=== PATIENT | male | born 1990 | race Two or more races ===

== ENCOUNTER 2019-12-02 23:19 | Emergency (ER) | payer SELFPAY ==
[2019-12-02] MEDS ORDERED: Ketorolac 30 MG/ML SDV IVPUSH ONE (23:46)
[2019-12-02] MEDS ORDERED: Sodium Chloride 0.9% 1,000 ML IV ONE (23:46)
[2019-12-02] MEDS ORDERED: Sodium Chloride 0.9% 10 ML Syringe FLUSH PRN (23:46)
[2019-12-02] MEDS ORDERED: Hyoscyamine 0.125 MG Tab.SL SL ONE (23:46)
[2019-12-02] MEDS ORDERED: Ondansetron 4 MG/2 ML SDV IVPUSH ONE (23:46)
[2019-12-02] MEDS ORDERED: Sodium Chloride 0.9% 2.5 ML Syringe FLUSH PRN (23:46)
--- NOTE | 2019-12-02 23:50 | EDM.PDOC ---
ED HPI GENERAL MEDICAL PROBLEM - General Chief Complaint: Abdominal Pain Stated Complaint: ABDOMINAL PAIN Time Seen by Provider: 12/02/19 23:31 - History of Present Illness INITIAL COMMENTS - FREE TEXT/NARRATIVE: HISTORY AND PHYSICAL: History of present illness: Patient is a 29-year-old male with no GI or abdominal surgical history who presents with complaints of nausea and diarrhea that started over the weekend and has persisted until today. He says that he ate chicken at a friend's house and felt a little upset stomach before going to sleep and the next day woke up and did not feel well. He says that he normally only has 1 bowel movement per week and it usually hard although he has not taken any stool softeners or over- the-counter preps to improve his fiber and his diet he says is variable and he does eat junk foods. When he had a loose stool at the onset of the symptoms he was surprised as it was watery and that is never happened before. Since that time he has had several watery stools that are not black or bloody and he has diffuse vague abdominal pain which does not localize right or left. He says that sometimes he will have spasms of pain in the left lower quadrant. He has nausea without vomiting no fevers or flank pain no urinary complaints and no upper respiratory symptoms. He has not tried anything [id number] for this. Review of systems: As per history of present illness and below otherwise all systems reviewed and negative. Past medical history: As per history of present illness and as reviewed below otherwise noncontributory. Surgical history: As per history of present illness and as reviewed below otherwise noncontributory. Social history: No reported history of drug or alcohol abuse. Family history: As per history of present illness and as reviewed below otherwise noncontributory. Physical exam: Well-developed well-nourished man who is nontoxic and moves easily in the ED. Vital signs are noted by me HEENT: Atraumatic, normocephalic, pupils reactive, negative for conjunctival pallor or scleral icterus, mucous membranes moist, throat clear, neck supple, nontender, trachea midline. Lungs: Clear to auscultation, breath sounds equal bilaterally, chest nontender. Heart: S1S2, regular, negative for clicks, rubs, or JVD. Abdomen: Soft, nondistended,. Bowel sounds are hypoactive and there is some minimal tenderness in the left lower quadrant without rebound or guarding and there is no tympany on percussion. Negative for masses or hepatosplenomegaly. Negative for costovertebral tenderness. Pelvis: Stable nontender. Genitourinary: Deferred. Rectal: Deferred. Extremities: Atraumatic, negative for cords or calf pain. Neurovascular unremarkable. Neuro: Awake, alert, oriented. Cranial nerves II through XII unremarkable. Cerebellum unremarkable. Motor and sensory unremarkable throughout. Exam nonfocal. Diagnostics: CBC CMP lactic acid abdominal x-rays UA with reflex--- patient refused all of this Therapeutics: IV fluids Zofran Toradol hyoscamine My evaluation the patient has told nursing that he does not want any lab evaluation x-rays or IV medications. We will give him a dose of Zofran and Levsin and a prescription for some for home and have advised follow-up in the clinic. Impression: Nausea and diarrhea with abdominal pain Definitive disposition and diagnosis as appropriate pending reevaluation and review of above. - Related Data Allergies Allergy/AdvReac Type Severity Reaction Status Date / Time shrimp Allergy Hives Verified 12/02/19 23:32 Home Meds: Home Meds oxyCODONE 5 mg PO ASDIRECTED PRN 12/02/19 [History] Past Medical History Cardiovascular History: Reports: Heart Murmur Musculoskeletal History: Reports: Other (See Below) Other Musculoskeletal History: fx R foot - Past Surgical History Cardiovascular Surgical History: Reports: None Musculoskeletal Surgical History: Reports: None Social & Family History - Family History Family Medical History: Noncontributory - Tobacco Use Smoking Status *Q: Current Every Day Smoker Years of Tobacco use: 3 Packs/Tins Daily: 0.3 - Caffeine Use Caffeine Use: Reports: Energy Drinks - Recreational Drug Use Recreational Drug Use: No ED ROS GENERAL - Review of Systems Review Of Systems: Comprehensive ROS is negative, except as noted in HPI. ED EXAM, GENERAL - Physical Exam Exam: See Below (See dictation) Course - Vital Signs Last Recorded V/S: Last Vital Signs Temp 36.4 C 12/02/19 23:25 Pulse 84 12/02/19 23:25 Resp 17 12/02/19 23:25 BP 142/92 H 12/02/19 23:25 Pulse Ox 97 12/02/19 23:25 - Orders/Labs/Meds Orders: Active Orders 24 hr Category Date Time Status Abdomen 2V AP Flat Upright [CR] Stat Exams 12/02/19 23:46 Ordered CBC WITH AUTO DIFF [HEME] Stat Lab 12/02/19 23:45 Ordered COMPREHENSIVE METABOLIC PN,CMP [CHEM] Stat Lab 12/02/19 23:45 Ordered LACTATE WITH REFLEX [BG] Stat Lab 12/02/19 23:45 Ordered UA RFX SUKHJINDER AND CULT IF INDIC [URIN] Stat Lab 12/02/19 23:37 Received Sodium Chloride 0.9% [Normal Saline] 1,000 ml Med 12/02/19 23:46 Active IV STAT Sodium Chloride 0.9% [Saline Flush] Med 12/02/19 23:46 Active 10 ml FLUSH ASDIRECTED PRN Sodium Chloride 0.9% [Saline Flush] Med 12/02/19 23:46 Active 2.5 ml FLUSH ASDIRECTED PRN Saline Lock Insert [OM.PC] Stat Oth 12/02/19 23:45 Ordered Medication Orders Sodium Chloride (Normal Saline) 1,000 mls @ 999 mls/hr IV STAT ONE Stop: 12/03/19 00:46 Sodium Chloride (Saline Flush) 10 ml FLUSH ASDIRECTED PRN PRN Reason: Keep Vein Open Sodium Chloride (Saline Flush) 2.5 ml FLUSH ASDIRECTED PRN PRN Reason: Keep Vein Open Meds: Medications Generic Name Dose Route Start Last Admin Trade Name Freq PRN Reason Stop Dose Admin Sodium Chloride 1,000 mls @ 999 mls/hr 12/02/19 23:46 Normal Saline IV 12/03/19 00:46 STAT ONE Sodium Chloride 10 ml 12/02/19 23:46 Saline Flush FLUSH ASDIRECTED PRN Keep Vein Open Sodium Chloride 2.5 ml 12/02/19 23:46 Saline Flush FLUSH ASDIRECTED PRN Keep Vein Open Discontinued Medications Generic Name Dose Route Start Last Admin Trade Name Freq PRN Reason Stop Dose Admin Hyoscyamine 0.125 mg 12/02/19 23:46 Hyomax-Sl SL 12/02/19 23:47 ONETIME ONE Ketorolac Tromethamine 30 mg 12/02/19 23:46 Toradol IVPUSH 12/02/19 23:47 ONETIME ONE Ondansetron HCl 4 mg 12/02/19 23:46 Zofran IVPUSH 12/02/19 23:47 ONETIME ONE Departure - Departure Time of Disposition: 00:02 Disposition: Home, Self-Care 01 Condition: Good Clinical Impression: Nausea Diarrhea Qualifiers: Diarrhea type: unspecified type Qualified Code(s): R19.7 - Diarrhea, unspecified - Discharge Information Referrals: PCP,None [Primary Care Provider] - Forms: ED Department Discharge Additional Instructions: The following information is given to patients seen in the emergency department who are being discharged to home. This information is to outline your options for follow-up care. We provide all patients seen in our emergency department with a follow-up referral. The need for follow-up, as well as the timing and circumstances, are variable depending upon the specifics of your emergency department visit. If you don't have a primary care physician on staff, we will provide you with a referral. We always advise you to contact your personal physician following an emergency department visit to inform them of the circumstance of the visit and for follow-up with them and/or the need for any referrals to a consulting specialist. The emergency department will also refer you to a specialist when appropriate. This referral assures that you have the opportunity for followup care with a specialist. All of these measure are taken in an effort to provide you with optimal care, which includes your followup. Under all circumstances we always encourage you to contact your private physician who remains a resource for coordinating your care. When calling for followup care, please make the office aware that this follow-up is from your recent emergency room visit. If for any reason you are refused follow-up, please contact the [facility] emergency department at and ask to speak to the emergency department charge nurse. [facility] Primary [facility]- Internal Medicine and Family [address] [id number] Duration and use medications as prescribed and needed. Please follow-up in the clinic and return to ER as needed and as discussed. Push hydration and bland diet. Sepsis Event Note - Evaluation Sepsis Screening Result: No Definite Risk - Focused Exam Vital Signs: Vital Signs Temp Pulse Resp BP Pulse Ox 12/02/19 23:25 36.4 C 84 17 142/92 H 97 Date Exam was Performed: 12/02/19 Time Exam was Performed: 23:59 - My Orders Last 24 Hours: My Active Orders 12/02/19 23:37 UA RFX SUKHJINDER AND CULT IF INDIC [URIN] Stat 12/02/19 23:45 CBC WITH AUTO DIFF [HEME] Stat COMPREHENSIVE METABOLIC PN,CMP [CHEM] Stat LACTATE WITH REFLEX [BG] Stat Saline Lock Insert [OM.PC] Stat 12/02/19 23:46 Abdomen 2V AP Flat Upright [CR] Stat Sodium Chloride 0.9% [Normal Saline] 1,000 ml IV STAT Sodium Chloride 0.9% [Saline Flush] 10 ml FLUSH ASDIRECTED PRN Sodium Chloride 0.9% [Saline Flush] 2.5 ml FLUSH ASDIRECTED PRN - Assessment/Plan Last 24 Hours: My Active Orders 12/02/19 23:37 UA RFX SUKHJINDER AND CULT IF INDIC [URIN] Stat 12/02/19 23:45 CBC WITH AUTO DIFF [HEME] Stat COMPREHENSIVE METABOLIC PN,CMP [CHEM] Stat LACTATE WITH REFLEX [BG] Stat Saline Lock Insert [OM.PC] Stat 12/02/19 23:46 Abdomen 2V AP Flat Upright [CR] Stat Sodium Chloride 0.9% [Normal Saline] 1,000 ml IV STAT Sodium Chloride 0.9% [Saline Flush] 10 ml FLUSH ASDIRECTED PRN Sodium Chloride 0.9% [Saline Flush] 2.5 ml FLUSH ASDIRECTED PRN
[2019-12-03] MEDS ORDERED: Ondansetron 4 MG Tab.DIS PO ONE (00:03)
== END 2019-12-03 00:14 | disposition home or self-care (01) ==
LOC: MW.ED 23:19
DX: R11.0 Nausea (principal); R19.7 Diarrhea, unspecified; F17.210 Nicotine dependence, cigarettes, uncomplicated; Z91.013 Allergy to seafood
CPT/HCPCS: 81003; 99284; A9270; 99282